=== PATIENT | female | born 1980 | race Asian ===

== ENCOUNTER 2025-03-24 21:56 | Emergency (ER) | payer SELFPAY ==
[~2025-03-24] VITALS: Ht 167.6 cm; Wt 109.0 kg
[2025-03-24 22:05] VITALS: O2SAT 100
[2025-03-24 22:56] LABS: CLARITY URINE CLOUDY (CLEAR); COLOR URINE YELLOW (YELLOW); GLUCOSE URINE NEGATIVE (NEGATIVE); KETONES URINE NEGATIVE (NEGATIVE); LEUKOCYTE ESTERASE URINE NEGATIVE (NEGATIVE); NITRITE URINE NEGATIVE (NEGATIVE); OCCULT BLOOD URINE NEGATIVE (NEGATIVE); PH URINE 5.5 (4.5-8.0); PROTEIN URINE NEGATIVE (NEGATIVE); SPECIFIC GRAVITY URINE 1.012 (1.005-1.030); UROBILINOGEN URINE 0.2 E.U./dL (0.2-1.0)
[2025-03-24 23:16] LABS: BACTERIA URINE TRACE; RBC URINE 0-2 /hpf (0-2); SQUAMOUS EPITHELIAL CELL URINE 1+ /lpf (RARE/1+); WBC URINE 0-2 /hpf (0-2)
[2025-03-24 23:17] LABS: BASOPHILS % 0.6 % (0.0-2.0); EOSINOPHILS % 0.4 % (0.0-5.0); HEMATOCRIT. 39.6 % (36.0-48.0); HEMOGLOBIN. 13.6 g/dL (12.0-16.0); LYMPHOCYTES % 12.2 % (20.0-50.0); MEAN CORPUSCULAR HEMOGLOBIN 30.6 pg (28.0-32.0); MEAN CORPUSCULAR HGB CONC 34.3 g/dL (31.0-37.0); MEAN CORPUSCULAR VOLUME 89.4 fL (81.0-99.0); MEAN PLATELET VOLUME 7.7 fl (7.4-10.4); MONOCYTES % 4.5 % (2.0-8.0); NEUTROPHILS % 82.3 % (40.0-76.0); PLATELET 302 x1000/uL (130-400); RED BLOOD CELL COUNT 4.43 mill/uL (4.2-5.4); RED CELL DISTRIBUTION WIDTH 13.6 % (11.6-14.6); WHITE BLOOD COUNT 9.7 x1000/uL (4.5-11.0)
[2025-03-24 23:30] LABS: CHLORIDE 104 mEq/L (98-107); SODIUM 139 mEq/L (136-145)
[2025-03-24 23:31] LABS: CARBON DIOXIDE 25 mEq/L (21-32)
[2025-03-24 23:32] LABS: CALCIUM 9.6 mg/dL (8.7-10.4)
[2025-03-24 23:36] LABS: CREATININE 0.8 mg/dL (0.6-1.0)
[2025-03-24 23:37] LABS: GLUCOSE 107 mg/dL (70-105); TROPONIN I HIGH SENSITIVITY 4 ng/L (3.0-34); UREA NITROGEN BLOOD 10 mg/dL (9-23)
[2025-03-24 23:38] LABS: ALANINE AMINOTRANSFERASE 15 IU/L (10-49); ALBUMIN 4.7 g/dL (3.2-4.8); ASPARTATE AMINOTRANSFERASE 22 IU/L (<34)
[2025-03-24 23:39] LABS: BILIRUBIN DIRECT 0.1 mg/dL (<=3.0); BILIRUBIN TOTAL 0.4 mg/dL (0.1-1.0); PROTEIN TOTAL 7.7 g/dL (6.0-8.3)
[2025-03-24 23:49] LABS: HCG SCREEN NEGATIVE
[2025-03-25] MEDS: KETOROLAC 30MG/ML VIAL IV STA (00:48)
[2025-03-25] MEDS: FAMOTIDINE 20MG/2ML VIAL IV STA (00:49)
[2025-03-25] MEDS: SODIUM CHLORIDE 0.9% 1,000 ML IV ONE (00:49)
[2025-03-25] MEDS: FAMOTIDINE 20MG/2ML VIAL IV NR (00:56)
[2025-03-25] MEDS: KETOROLAC 30MG/ML VIAL IV NR (00:57)
[2025-03-25] MEDS ORDERED: FAMO-135 PO (01:55)
[2025-03-25 01:58] VITALS: BP 150/96; PULSE 81; RESP 18; TEMP 36.7; O2SAT 97
== END 2025-03-25 02:04 | disposition home or self-care (01) ==
LOC: ER 21:56
DX: K44.9 Diaphragmatic hernia without obstruction or gangrene (principal); K42.9 Umbilical hernia without obstruction or gangrene; R10.9 Unspecified abdominal pain; J45.909 Unspecified asthma, uncomplicated; I10 Essential (primary) hypertension; Z79.899 Other long term (current) drug therapy
CPT/HCPCS: 99285; 74176; 76705; 71045; 80076; 80048; 81003; 81025; 84703; 83690; 85025; 84484; 36415; 93005; 96374; 96361; 96375; J7030; J1885; J1308